=== PATIENT | female | born 1995 | race African-American/Black ===

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

== ENCOUNTER 2018-01-07 10:52 | Emergency (ER) | payer OTHER ==
[~2018-01-07] VITALS: Ht 170.2 cm; Wt 68.2 kg
[~2018-01-07 10:52] MED LIST changes: +CEPHALEXIN500 MG PO; +ROBITUSSIN AC10 ML PO
[2018-01-07 11:32] LABS: URINE BILIRUBIN - DIPSTICK NEGATIVE (NEGATIVE); URINE BLOOD DIPSTICK NEGATIVE (NEGATIVE); URINE COLOR YELLOW; URINE GLUCOSE - DIPSTICK NEGATIVE (NEGATIVE); URINE KETONE NEGATIVE (NEGATIVE); URINE NITRITE - DIPSTICK NEGATIVE (Negative); URINE PROTEIN - DIPSTICK NEGATIVE (NEG-TRACE); URINE SPECIFIC GRAVITY 1.025
[2018-01-07 11:35] LABS: URINE CLARITY SL CLOUDY; URINE LEUK ESTERASE SMALL (NEGATIVE)
[2018-01-07 11:36] LABS: URINE BACTERIA MODERATE hpf; URINE EPITHELIAL CELLS MODERATE EPI/hpf (0-FEW)
[2018-01-07] MEDS ORDERED: KEFLEX500 M1 PO (11:55)
[2018-01-07 12:05] VITALS: BP 127/82
== END 2018-01-07 12:05 | disposition home or self-care (01) ==
LOC: ED 10:52
PROVIDERS: Family Medicine
DX: O23.91 Unspecified genitourinary tract infection in pregnancy, first trimester (principal); B96.20 Unspecified Escherichia coli [E. coli] as the cause of diseases classified elsewhere; Z3A.01 Less than 8 weeks gestation of pregnancy

== ENCOUNTER 2018-05-22 17:55 | Emergency (ER) | payer OTHER ==
[~2018-05-22] VITALS: Ht 170.2 cm; Wt 80.0 kg
[~2018-05-22 17:55] MED LIST changes: +KEFLEX500 M1 PO
[2018-05-22] MEDS ORDERED: PRENATA3 PO (18:03)
[2018-05-22 18:38] LABS: HEMATOCRIT 31.3 % (37.0-47.0); HEMOGLOBIN 10.6 g/dl (12.0-16.0); IMMATURE GRANULOCYTES 2.2 % (0.0-5.0); MEAN CELL VOLUME 89.7 fL CALC (80.0-100.0); MEAN CORPUSCULAR HGB 30.4 pG CALC (26.0-32.0); MEAN CORPUSCULAR HGB CONC 33.9 g/L CALC (32.0-36.0); NEUT# 5.12 thou/uL (2.00-7.15); RED BLOOD COUNT 3.49 mill/uL (4.20-5.60); URINE BILIRUBIN - DIPSTICK NEGATIVE (NEGATIVE); URINE BLOOD DIPSTICK NEGATIVE (NEGATIVE); URINE COLOR YELLOW; URINE GLUCOSE - DIPSTICK NEGATIVE (NEGATIVE); URINE KETONE NEGATIVE (NEGATIVE); URINE LEUK ESTERASE NEGATIVE (NEGATIVE); URINE NITRITE - DIPSTICK NEGATIVE (Negative); URINE PH 6.5 (4.5-8.0); URINE PROTEIN - DIPSTICK 30 mg/dL (NEG-TRACE); URINE SPECIFIC GRAVITY 1.025
[2018-05-22 18:43] LABS: URINE CLARITY CLEAR; URINE RBC 0-2 RBC/hpf (0-5); URINE SQUAMOUS EPITHELIAL CELL FEW EPI/hpf (0-FEW); URINE WBC 0-2 WBC/hpf (0-5)
[2018-05-22 18:54] LABS: ALBUMIN 3.8 g/dL (3.2-5.0); ALKALINE PHOSPHATASE 67 u/l (38-126); ANION GAP 10 (6-22 (CALC)); BILIRUBIN, TOTAL 0.5 mg/dL (0.0-1.4); BUN 8 mg/dL (7-17); BUN/CREATININE RATIO 12 (12-20 (CALC)); CARBON DIOXIDE 25 mmol/l (22-30); CHLORIDE 108 mmol/l (95-108); CREATININE 0.6 mg/dL (0.5-1.0); GFR > 60 ML/MIN (>=60 (CALC)); GFR FOR AFR.AMER. > 60 ML/MIN (>=60 (CALC)); SGOT/AST 21 u/l (14-36); SODIUM 139 mmol/l (137-146); TOTAL PROTEIN 6.8 g/dL (6.3-8.2)
[2018-05-22 19:11] LABS: BETA-HCG, QUANT(RESULT NUMBER) 10032 mIU/mL
[2018-05-22 19:15] VITALS: BP 124/79
== END 2018-05-22 19:41 | disposition home or self-care (01) ==
LOC: ED 17:55
PROVIDERS: Emergency Medicine
DX: O99.342 Other mental disorders complicating pregnancy, second trimester (principal); F41.9 Anxiety disorder, unspecified; Z3A.24 24 weeks gestation of pregnancy

== ENCOUNTER 2018-06-25 12:34 | Emergency (ER) | payer OTHER ==
[~2018-06-25] VITALS: Ht 170.2 cm; Wt 80.0 kg
[~2018-06-25 12:34] MED LIST changes: +PRENATA3 PO
[2018-06-25 12:45] VITALS: BP 124/69
[2018-06-25] MEDS ORDERED: AMOXICILLIN875 MG PO (13:40)
== END 2018-06-25 13:50 | disposition home or self-care (01) ==
LOC: ED 12:34
DX: O98.513 Other viral diseases complicating pregnancy, third trimester (principal); Z3A.29 29 weeks gestation of pregnancy; J02.9 Acute pharyngitis, unspecified; R05 Cough; R51 Headache; H92.03 Otalgia, bilateral

== ENCOUNTER → 2018-08-08 | Outpatient (REF) | payer OTHER ==
[~2018-08-08] MED LIST changes: +AMOXICILLIN875 MG PO
[2018-08-08 11:34] LABS: HEMATOCRIT 33.9 % (37.0-47.0); HEMOGLOBIN 11.2 g/dl (12.0-16.0); IMMATURE GRANULOCYTES 1.3 % (0.0-5.0); MEAN CELL VOLUME 89.2 fL CALC (80.0-100.0); MEAN CORPUSCULAR HGB 29.5 pG CALC (26.0-32.0); NEUT# 2.88 thou/uL (2.00-7.15); RED BLOOD COUNT 3.8 mill/uL (4.20-5.60); RED CELL DISTRI WIDTH 14.7 % (11.5-15.5)
== END | disposition home or self-care (01) ==
LOC: LAB 10:59
PROVIDERS: ATTEND Obstetrics & Gynecology
DX: Z86.19 Personal history of other infectious and parasitic diseases (principal)

== ENCOUNTER 2018-12-10 08:16 | Emergency (ER) | payer SELFPAY ==
[~2018-12-10] VITALS: Ht 170.2 cm; Wt 65.0 kg
[2018-12-10 08:29] VITALS: BP 135/66
[2018-12-10] MEDS ORDERED: ERYTHROMYCIN O3.5 GM OU (08:40)
== END 2018-12-10 08:46 | disposition home or self-care (01) | DRG 125 ==
LOC: ED 08:16
DX: H10.33 Unspecified acute conjunctivitis, bilateral (principal)

== ENCOUNTER 2019-12-21 09:33 | Emergency (ER) | payer OTHER ==
[~2019-12-21] VITALS: Ht 170.2 cm; Wt 75.0 kg
[~2019-12-21 09:33] MED LIST changes: +ERYTHROMYCIN O3.5 GM OU
[2019-12-21] MEDS ORDERED: HYDROCO/APAP1 TA9 PO (10:10)
[2019-12-21] MEDS ORDERED: MOTRIN400 MG PO (10:10)
[2019-12-21 10:14] VITALS: BP 127/86
== END 2019-12-21 10:18 | disposition home or self-care (01) ==
LOC: ED 09:33
DX: G89.18 Other acute postprocedural pain (principal); K08.409 Partial loss of teeth, unspecified cause, unspecified class

== ENCOUNTER 2021-02-08 11:38 | Emergency (ER) | payer OTHER ==
[~2021-02-08] VITALS: Ht 170.2 cm; Wt 77.0 kg
[~2021-02-08 11:38] MED LIST changes: +HYDROCO/APAP1 TA9 PO; +MOTRIN400 MG PO
[2021-02-08 13:00] VITALS: BP 112/70
== END 2021-02-08 13:00 | disposition home or self-care (01) ==
LOC: ED 11:38
DX: B34.9 Viral infection, unspecified (principal); Z20.822 Contact with and (suspected) exposure to COVID-19

== ENCOUNTER 2021-11-19 04:40 | Emergency (ER) | payer OTHER ==
[~2021-11-19] VITALS: Ht 170.2 cm; Wt 70.0 kg
[2021-11-19 04:44] VITALS: BP 116/80
[2021-11-19 05:00] VITALS: BP 121/77
[2021-11-19] MEDS ORDERED: DIPHENHYDRAM50 M2 PO (06:03)
[2021-11-19] MEDS ORDERED: MEDDOSEPAK PO (06:03)
[2021-11-19] MEDS ORDERED: PEPCID20 MG PO (06:03)
[2021-11-19 06:44] VITALS: BP 137/107
[2021-11-19 06:51] VITALS: BP 96/72
[2021-11-19 07:06] VITALS: BP 96/72
== END 2021-11-19 08:12 | disposition home or self-care (01) ==
LOC: ED 04:40
DX: L23.7 Allergic contact dermatitis due to plants, except food (principal)